=== PATIENT | male | born 1935 | race Caucasian/White ===

== ENCOUNTER 2017-01-05 07:59 | Emergency (ER) | payer MEDICARE ==
[~2017-01-05 07:59] MED LIST: ACTOS30 M1 PO; ALEVE220 M4 PO; AMARYL4 M1 PO; AVALIDE 300-251 TAB; CATAPRES0.2 MG; CIPROFLOXACIN500 MG; CLONI; CLONIDINE; CLONIDINE HCL0.2 M1 PO; CLONIDINE HCL0.2 MG; DEMADEX20 M1 PO; DILTIAZEM ER240 M6 PO; DILTIAZEM ER240 MG; DILTIAZEM ER420 M1 PO; DIOVAN320 M1 PO; FENOFIBRATE160 MG PO; GLIMEPIRIDE4 MG; GLUCOPHAGE XR500 M1 PO; GLYNASE; GLYNASE3 MG; JANUVIA100 M1 PO; KLOR-CON M2020 MEQ; LIPITOR80 M1 PO; LOVASTATIN40 MG; MAGNESIUM PO; METFORMIN HCL500; METOPROLOL SUC200 M1 PO; MULTIVITAMINS1 EAC6 PO; NORVASC2.5 M1 PO; OMEPRAZOLE40 M2 PO; POTASSIUM CHLO20 ME3 PO; STEROID PO; TIAZAC420 MG; TOPROL XL200 MG; TRAMADOL PO; TRIGLIDE160 MG; TYLENOL PO; TYLENOL325 M2 PO; ULTRAM50 M1 PO; VALSARTAN-HCTZ1 EA13 PO; [UNRECOGNIZED DRUG - CODE]
[2017-01-05] MEDS ORDERED: MAGNESIUM OXID400 M1 PO (08:25)
[2017-01-05] MEDS ORDERED: MAGNESIUM SUPPLEMENT PO (08:25)
[2017-01-05 09:10] LABS: BASO % 0.3 % (0-2); EOS % 2.1 % (0-7); EOSINOPHIL ABSOLUTE COUNT 0.2 tho/cmm (0.0-0.7); HCT-HEMATOCRIT 43.1 % (36.0-53.5); HGB-HEMOGLOBIN 14.4 gm/dl (13.5-17.0); IMMATURE GRANULOCYTES ABSOLUTE 0.02 tho/cmm (0-0.03); IMMATURE GRANULOCYTES PERCENT 0.2 % (0-0.3); LYMPH % 8.7 % (20-45); LYMPH ABSOLUTE COUNT 0.9 tho/cmm (0.8-4.5); MCH (MEAN CORPUSCULAR HGB) 30.4 pg (28.0-32.0); MCHC MEAN CORPUSCULAR HGB CONC 33.4 % (32.0-36.0); MCV (MEAN CELL VOLUME) 90.9 fl (82.0-96.0); MEAN PLATELET VOLUME 13.3 cmc (9.4-12.4); MONO % 5.9 % (0-12); MONOCYTE ABSOLUTE COUNT 0.6 tho/cmm (0.0-1.2); NEUTROPHIL ABSOLUTE COUNT 8.5 tho/cmm (1.6-8.0); NEUTROPHIL-AUTOMATED 8.5 tho/cmm (1.6-8.0); NEUTROPHILS % 82.8 % (40-80); PLATELET COUNT 213 tho/cmm (150-450); RED BLOOD COUNT 4.74 mil/cmm (4.40-5.70); RED CELL DISTRIBUTION WIDTH 13.5 % (12.4-16.4); WHITE BLOOD COUNT 10.3 tho/cmm (4.0-10.0)
[2017-01-05 09:23] LABS: ALBUMIN 3.6 g/dl (3.5-5.0); ALKALINE PHOSPHATASE 109 U/L (33-138); ALT/SGPT 23 U/L (12-78); BILIRUBIN,TOTAL 0.7 mg/dl (0.0-1.5); BLOOD UREA NITROGEN 25 mg/dl (6-24); CALCIUM 9.1 mg/dl (8.5-10.5); CARBON DIOXIDE-VENOUS 27 mmol/L (22-32); CHLORIDE 105 mmol/l (96-110); CREATININE 1.06 mg/dl (0.60-1.30); GLUCOSE 249 mg/dL (70-110); SODIUM 141 mmol/L (135-145); eGFR VALUE FOR BLACK 77 mL/Min
[2017-01-05 09:26] LABS: ANION GAP 13 mmol/L (0-20); AST/SGOT 28 U/L (10-40); POTASSIUM 4.4 mmol/L (3.7-5.1)
== END 2017-01-05 09:53 ==
LOC: EDMED 07:59
PROVIDERS: Emergency Medicine
DX: J06.9 Acute upper respiratory infection, unspecified (principal); I11.0 Hypertensive heart disease with heart failure; E11.9 Type 2 diabetes mellitus without complications; I45.10 Unspecified right bundle-branch block; M19.90 Unspecified osteoarthritis, unspecified site; E78.5 Hyperlipidemia, unspecified; Z85.038 Personal history of other malignant neoplasm of large intestine; Z90.89 Acquired absence of other organs; Z79.899 Other long term (current) drug therapy